=== PATIENT | male | born 1945 | race Caucasian/White ===

== ENCOUNTER 2020-12-28 08:32 | Outpatient (REF) | payer MEDICARE, SELFPAY | END 2020-12-28 08:33 | disposition home or self-care (01) | LOC: HO.SCI 08:32 | DX: Z13.89 Encounter for screening for other disorder (principal) ==

== ENCOUNTER 2020-12-31 12:51 | Outpatient (REF) | payer MEDICARE, SELFPAY ==
--- NOTE | ~2020-12-31 | MR_ITS ---
EXAMINATION: MR BRAIN WITHOUT CONTRAST CLINICAL INFORMATION: Traumatic brain injury. Cerebral microvascular disease. COMPARISON: None available. TECHNIQUE: MRI of the brain was obtained using routine sequences without contrast. FINDINGS: No focal restricted diffusion is demonstrated to suggest acute or subacute cerebral ischemia. Small foci of susceptibility artifact within the left lentiform nucleus and left thalamus consistent with petechial microhemorrhage. No evidence of acute hemorrhagic products on heme-sensitive imaging. Chronic encephalomalacia of the bilateral anterior frontal lobes. Scattered periventricular and deep white matter T2 FLAIR hyperintensities consistent with mild to moderate underlying microangiopathy. Proportional prominence of the ventricles and sulcal spaces without evidence of obstructive hydrocephalus. No abnormal mass effect. No midline shift. Normal appearance of the pituitary gland. Normal positioning of the cerebellar tonsils. The intracranial internal carotid arteries are tortuous. Otherwise, normal arterial and venous vascular flow voids are present. Normal, homogeneous marrow signal. Mild mucosal thickening of the paranasal sinuses. Moderate rightward nasal septal deviation. Trace bilateral mastoid effusions. MR/MR head/brain wo con IMPRESSION: 1. No acute intracranial abnormalities. 2. Chronic encephalomalacia of the bilateral anterior frontal lobes suggestive of prior traumatic brain injury 3. Mild to moderate white matter changes most commonly seen with underlying microangiopathy.
== END 2020-12-31 12:52 | disposition home or self-care (01) ==
LOC: HO.MRI 12:51
PROVIDERS: PCP Internal Medicine; Visit Provider Psychiatry & Neurology Neurology
DX: S06.9X9A Unspecified intracranial injury with loss of consciousness of unspecified duration, initial encounter (principal)
CPT/HCPCS: 70551